=== PATIENT | male | born 1965 | race African-American/Black ===

== ENCOUNTER 2017-09-11 12:58 | Emergency (ER) | payer MEDICAID, OTHER ==
[~2017-09-11] VITALS: Ht 175.3 cm; Wt 72.6 kg
[~2017-09-11 12:58] MED LIST: DOXYCYCLINE MO100 MG ORAL
[2017-09-11 13:20] VITALS: BP 127/88
[2017-09-11] MEDS ORDERED: oxyCODONE HCL/Acetaminophen 5/325mg ORAL ONE (13:30)
--- NOTE | 2017-09-11 13:37 | Emergency Room Report ---
History of Present Illness General Chief Complaint: Medication Refill Source: Patient Present Illness HPI 51-year-old male presents to the emergency department complaining of exacerbation of his chronic back and hand pain 4 days. Patient has a history of chronic pain and neuropathy he also has a history of HIV. Patient states that he is currently in between pain management provider's as he had a change in his insurance. Patient states that his primary care provider told him to go to the ER for refill. Patient reports that he takes oxycodone 30 mg as well as 1 mg Xanax regularly. He denies trauma or fall, fevers, chills, nausea vomiting. He denies changes in his symptoms from previous episodes. Denies gross numbness/tingling or loss of sensation. Denies loss of gross motor movements of the extremities, incontinence of bowel or bladder. Denies CP, Palpitations, LOC, AMS, dizziness, Changes in Vision, Sensation, paresthesias, or a sudden severe headache. Allergies: Coded Allergies: No Known Allergies (Unverified , 06/02/14) Patient History Past Medical History: see triage record Past Surgical History: none Pertinent Family History: none Reviewed Nursing Documentation: PMH: Agreed; PSxH: Agreed Nursing Documentation-PMH Past Medical History: No History, Except For Hx Cardiac Problems: No - hematuria History Of Psychiatric Problem: Yes - anxiety Review of Systems All Other Systems: negative except mentioned in HPI Physical Exam Vital Signs Date Time Temp Pulse Resp B/P (MAP) Pulse Ox O2 Delivery O2 Flow Rate FiO2 09/11/17 13:10 97.7 93 19 127/88 96 Room Air 97.7 Sp02 EP Interpretation: reviewed, normal General Appearance: no apparent distress, alert, GCS 15, non-toxic Head: normocephalic, atraumatic Eyes: bilateral eye normal inspection, bilateral eye PERRL ENT: hearing grossly normal, normal voice Neck: full range of motion Respiratory: chest non-tender, lungs clear, normal breath sounds, speaking full sentences Cardiovascular #1: regular rate, rhythm, normal capillary refill Musculoskeletal: back normal, gait/station normal, normal range of motion, non- tender, other - Pt. has pain with making fists, but has FROM Neurologic: alert, oriented x3, responsive, motor strength/tone normal, sensory intact, normal gait, speech normal, grossly normal Psychiatric: judgement/insight normal Skin: normal color, no rash, warm/dry, well hydrated Medical Decision Making PA Attestation Dr. Gonzalez is my supervising Physician whom patient management has been discussed with. Diagnostic Impression: Primary Impression: Encounter for medication refill ER Course 51-year-old male presents to the emergency department complaining of exacerbation of his chronic back and hand pain 4 days. Patient has a history of chronic pain and neuropathy he also has a history of HIV. Patient states that he is currently in between pain management provider's as he had a change in his insurance. Patient states that his primary care provider told him to go to the ER for refill. Patient reports that he takes oxycodone 30 mg as well as 1 mg Xanax regularly. He denies trauma or fall, fevers, chills, nausea vomiting. He denies changes in his symptoms from previous episodes. Denies gross numbness/tingling or loss of sensation. Denies loss of gross motor movements of the extremities, incontinence of bowel or bladder. Denies CP, Palpitations, LOC, AMS, dizziness, Changes in Vision, Sensation, paresthesias, or a sudden severe headache. Ddx considered but are not limited to: drug seeking, OD, Vital signs: are WNL, pt. is afebrile H&PE are most consistent with request for non-emergent medication refill ORDERS: none required at this time, the diagnosis is clinical ED INTERVENTIONS: --Ordered Pain medication , however pt. declined and stated he will try and contact his new pain management dr's office. -D/w pt. that I am more than happy to treat his pain here, however our policy is that chronic pain medications need to be managed by one prescribing provider , and encouraged pt. to contact his PCP, or new pain management dr's office. -I do not identify an emergent condition at this time. With current presentation , pt. is stable for close outpatient follow up and conservative treatment. D/ w pt. to return promptly to ED with worsening or new symptoms.- Pt. verbalizes his understanding and agreement with proposed treatment plan.proposed treatment plan. DISCHARGE: At this time pt. is stable for d/c to home. Will provide printed patient care instructions, and any necessary prescriptions. Care plan and follow up instructions have been discussed with the patient prior to discharge. Last Vital Signs Date Time Temp Pulse Resp B/P (MAP) Pulse Ox O2 Delivery O2 Flow Rate FiO2 09/11/17 13:10 97.7 93 19 127/88 96 Room Air 97.7 Disposition: HOME, SELF-CARE Condition: Stable Patient Instructions: Medicine Refill at the Emergency Department Additional Instructions: Take medications as directed. Follow up with a Primary Care Provider in 3-5 days, for medication management of chronic pain prescriptions. Emergency department only provides controlled substance prescriptions for acute injuries. --Please review list of primary care clinics, if you do not already have a primary care provider Return sooner to ED if new symptoms occur, or current symptoms become worse. - Please note that this Emergency Department Report was dictated using [employer] liaison technology software, occasionally this can lead to erroneous entry secondary to interpretation by the dictation equipment. Quin Riley September 11, 2017 13:37
[2017-09-11 13:47] VITALS: BP 127/88
== END 2017-09-11 14:13 | disposition home or self-care (01) ==
LOC: EMR 13:53
DX: G89.29 Other chronic pain (principal); G62.9 Polyneuropathy, unspecified; F41.9 Anxiety disorder, unspecified; Z76.0 Encounter for issue of repeat prescription
CPT/HCPCS: 99283

== ENCOUNTER 2018-09-17 03:33 | Emergency (ER) | payer OTHER ==
[~2018-09-17] VITALS: Ht 180.3 cm; Wt 72.6 kg
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
[2018-09-17] MEDS ORDERED: Morphine Sulfate 10mg/ml Inj IM ONE (03:45)
[2018-09-17 03:56] VITALS: BP 136/97
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
--- NOTE | 2018-09-17 04:01 | NUR ---
ED Nurse Note: patient was taken down for CT
--- NOTE | 2018-09-17 04:15 | NUR ---
ED Nurse Note: patient is back from CT
[2018-09-17 04:58] LABS: APPEARANCE,URINE CLEAR; BILIRUBIN, URINE NEGATIVE (NEGATIVE); COLOR,URINE BROWN; GLUCOSE, URINE (UA) NEGATIVE (NEGATIVE); KETONES,URINE 1+ (NEGATIVE); LEUKOCYTE ESTERASE ,URINE 1+ (NEGATIVE); NITRITE,URINE NEGATIVE (NEGATIVE); PH,URINE 5 (4.5-8.0); PROTEIN,URINE 2+ (NEGATIVE); UROBILINOGEN,URINE 1 MG/DL (0.0-1.0)
[2018-09-17 05:00] LABS: BASOPHILS % (AUTO) 0.6 % (0.0-2.0); EOSINOPHILS % (AUTO) 0.8 % (0.0-3.0); HEMATOCRIT 34.2 % (42.0-52.0); HEMOGLOBIN 11.7 G/DL (14.2-18.0); LYMPHOCYTES % (AUTO) 24.9 % (20.0-45.0); MEAN CORPUSCULAR VOLUME 93 FL (80-99); NEUTROPHILS % (AUTO) 65.7 % (45.0-75.0); PLATELET COUNT 210 K/UL (150-450); RED BLOOD COUNT 3.68 M/UL (4.70-6.10); RED CELL DISTRIBUTION WIDTH 12.5 % (11.6-14.8); WHITE BLOOD COUNT 6.9 K/UL (4.8-10.8)
[2018-09-17 05:07] VITALS: BP 135/87
[2018-09-17 05:24] LABS: ANION GAP 6 mmol/L (5-15); BLOOD UREA NITROGEN 12 mg/dL (7-18); CALCIUM 9.1 MG/DL (8.5-10.1); CARBON DIOXIDE 29 MMOL/L (21-32); CHLORIDE 102 MMOL/L (98-107); CREATININE 1.1 MG/DL (0.55-1.30); SODIUM 137 MMOL/L (136-145)
[2018-09-17 05:28] LABS: ALANINE AMINOTRANSFERASE 22 U/L (12-78); ALBUMIN 3.4 G/DL (3.4-5.0); ALBUMIN/GLOBULIN RATIO 0.9 (1.0-2.7); ALKALINE PHOSPHATASE 65 U/L (46-116); ASPARTATE AMINO TRANSFERASE 21 U/L (15-37); BILIRUBIN,TOTAL 0.5 MG/DL (0.2-1.0)
[2018-09-17 06:06] VITALS: BP 125/81
--- NOTE | 2018-09-17 06:34 | NUR ---
ED Nurse Note: Report given to Krystyna Eisenberg at [facility], waiting for transportation.
[2018-09-17 06:42] VITALS: BP 120/82
--- NOTE | 2018-09-17 06:44 | NUR ---
ED Nurse Note: Patient was transfered to [facility] due to hemoperitoneum, suspicious spleen rupture. AAOx4, VSS at this time, skin is intact, warm to touch, patient was woken up, cooperativ, no acute disstress noticed. Patient was transfered by [facility] [id number]. All belongings were transfered with the patient.
--- NOTE | 2018-09-17 09:54 | Diagnostic Imaging Report ---
Indication: Abdominal pain Technique: Continuous helical transaxial imaging of the abdomen and pelvis was obtained from the lung bases to the pubic symphysis. No intravenous contrast was administered. Coronal 2-D reformats were also obtained. Automatic Exposure Control was utilized. Total Dose length Product (DLP): 545.[address] Dose Index Volume (CTDIvol): 10.35 mGy Comparison: none Findings: Linear and groundglass opacities are at the lung bases consistent with atelectasis. In the left lower lobe there may be pneumonia present. Clinical correlation is needed. There is a small hiatal hernia. There is peritoneal free fluid demonstrated most notably within the pelvis posterior to the urinary bladder. The fluid is dense similar to that of muscle and considerably more dense than the gallbladder or fluid at the stomach and bowel. Findings are consistent with hemoperitoneum. The nature of this is unknown. The spleen is heterogeneous and therefore consider splenic rupture as the source of the blood. Evaluation of solid organs is limited on this study done without IV contrast. There is no hydronephrosis. The appendix is not seen. There is a probable small left inguinal hernia containing fat. Narrowing of the L4-5 and L5-S1 discs noted. Hypertrophied facets demonstrated within the mid and lower lumbar spine. IMPRESSION: Hemoperitoneum. Query splenic rupture. Please correlate clinically. Posterior basilar atelectasis versus pneumonia. Degenerative disease involving the lower lumbar spine. Small hiatal hernia [facility] has communicated the preliminary results to the Emergency Department. Their findings are largely concordant with this report. The CT scanner at [facility] is accredited by the [employer] and the scans are performed using dose optimization techniques as appropriate to a performed exam including Automatic Exposure control.
--- NOTE | 2018-09-17 12:55 | Diagnostic Imaging Report ---
Indication: Dyspnea Comparison: 07/18/2005 A single view chest radiograph was obtained. Findings: There is scarring or atelectasis at the left lung base with platelike density. Heart size is prominent but lung volumes are low. IMPRESSION: Mild left basal atelectasis versus scarring
== END 2018-09-17 06:55 | disposition short-term general hospital (02) ==
LOC: EMR 03:57
DX: S36.09XA Other injury of spleen, initial encounter (principal); K66.1 Hemoperitoneum; B20 Human immunodeficiency virus [HIV] disease; R10.9 Unspecified abdominal pain; V47.5XXA Car driver injured in collision with fixed or stationary object in traffic accident, initial encounter; Y92.410 Unspecified street and highway as the place of occurrence of the external cause; R11.2 Nausea with vomiting, unspecified; K44.9 Diaphragmatic hernia without obstruction or gangrene; M47.9 Spondylosis, unspecified
CPT/HCPCS: 36415; 71045; 74176; 80053; 81001; 83690; 85025; 85610; 85730; 86900; 86901; 96360; 96372; 99291; J2270

== ENCOUNTER 2019-08-06 09:32 | Outpatient (CLI) | payer MEDICAID ==
[~2019-08-06] VITALS: Ht 175.3 cm; Wt 73.9 kg
[2019-08-06 13:41] VITALS: BP 100/65
[2019-08-06] MEDS ORDERED: IBUPROFEN600 M1 ORAL (13:41)
[2019-08-06] MEDS ORDERED: HIV MEDICATION (13:41)
[2019-08-06] MEDS ORDERED: XANAX0.5 MG ORAL (13:41)
[2019-08-06] MEDS ORDERED: QUETIAPINE FUM100 MG ORAL (13:41)
[2019-08-06] MEDS ORDERED: OXYCODONE HCL10 MG ORAL (13:41)
--- NOTE | 2019-08-06 16:30 | Consultation ---
DATE OF CONSULTATION: 08/06/2019 CONSULTING PHYSICIAN: Harris Munoz M.D. CHIEF COMPLAINT: Constipation, bloating, abdominal pain. HISTORY OF PRESENT ILLNESS: This is a 53-year-old male with past medical history of HIV and anxiety who was apparently in December admitted to the hospital with some diagnosis of possible colitis, had a colonoscopy done. I do not have the report, but there is a written note says that patient had no polyps and no colitis. Patient is here because he is having rectal bleeding, abdominal pain, constipation, straining. PAST MEDICAL HISTORY: 1. HIV. 2. Anxiety. 3. Chronic back pain. PAST SURGICAL HISTORY: Vocal cord tumor. MEDICATIONS: He is on Xanax, HIV medication, Seroquel, ibuprofen. FAMILY HISTORY: No family history of GI malignancies. SOCIAL HISTORY: The patient occasionally drinks alcohol. Smokes 1 pack of his cigarettes and also uses marijuana. ALLERGIES: No known drug allergies. REVIEW OF SYSTEMS: Positive for abdominal pain, constipation, rectal bleeding, bloating. PHYSICAL EXAMINATION: VITAL SIGNS: Temperature 98.4, blood pressure 100/65, pulse 76, respirations 20. HEENT: Normocephalic and atraumatic. Sclerae anicteric. NECK: Supple. No evidence of obvious lymphadenopathy. CARDIOVASCULAR: Regular rate and rhythm. Plus S1-S2. LUNGS: Clear to auscultation bilaterally. ABDOMEN: Positive bowel sounds. Soft, nontender. No rebound. No guarding. No peritoneal sign. EXTREMITIES: No cyanosis. No clubbing. No edema. ASSESSMENT AND PLAN: This is a 53-year-old male with recent colonoscopy back in December of 2018 with just handwritten report saying no acute finding, complained of mostly abdominal pain, constipation, straining, and maybe bleeding from the hemorrhoids. Plan to treat the hemorrhoids with Anusol-HC cream twice a day. Sitz baths. Patient was also given a prescription for Amitiza twice a day for constipation. Patient was told to come back if his symptoms does not improve for possible repeat colonoscopy. Also, patient was told to bring the report of his last colonoscopy. Harris Munoz M.D. DR: MARA JOB#: [id number] CC:
== END 2019-08-06 11:32 | disposition home or self-care (01) ==
LOC: PAN 09:32
DX: R10.9 Unspecified abdominal pain (principal); K59.00 Constipation, unspecified; R14.0 Abdominal distension (gaseous); K64.9 Unspecified hemorrhoids; B20 Human immunodeficiency virus [HIV] disease; F41.9 Anxiety disorder, unspecified; Z79.899 Other long term (current) drug therapy; F17.210 Nicotine dependence, cigarettes, uncomplicated; F12.90 Cannabis use, unspecified, uncomplicated; K62.5 Hemorrhage of anus and rectum
CPT/HCPCS: G0463

== ENCOUNTER 2019-11-03 13:54 | Emergency (ER) | payer MEDICAID, OTHER ==
[~2019-11-03] VITALS: Ht 175.3 cm; Wt 72.6 kg
[~2019-11-03 13:54] MED LIST changes: +HIV MEDICATION; +IBUPROFEN600 M1 ORAL; +OXYCODONE HCL10 MG ORAL; +QUETIAPINE FUM100 MG ORAL; +XANAX0.5 MG ORAL
[2019-11-03 14:10] VITALS: BP 122/74
--- NOTE | 2019-11-03 14:15 | NUR ---
Nurse Note: Pt walked in c/o mass behind RT ear. Per pt, pt went to [facility] on October 16 for a procedure. Pt stated he missed his follow up appointment. Mass red, large, no puss and drainage noted. Denies pain.
--- NOTE | 2019-11-03 14:22 | Emergency Room Report ---
History of Present Illness General Chief Complaint: Skin Rash/Abscess Source: Patient Present Illness HPI The patient had a benign tumor removed on October 15 by a surgeon. He thinks he got it wet. Is been swelling since that time. He denies any pain or fevers or chills. He has been putting boil ease on it. Apparently the tumor was benign which was removed. No sore throat, chest pain, nausea, vomiting, diarrhea, dysuria, abdominal pain , shortness of breath, joint pain, depression, anxiety, visual changes, dizziness, headache. 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 COVID-19 Screening: Negative COVID-19 COVID-19 Testing Source: [facility] 2 weeks ago Patient History Past Medical History: see triage record Social History: Reports: smoking, alcohol use, drug use Social History Narrative From home Reviewed Nursing Documentation: PMH: Agreed; PSxH: Agreed Nursing Documentation-PMH Past Medical History: No History, Except For Hx Hypertension: Yes Hx Cancer: No Hx Gastrointestinal Problems: Yes - colitis Hx Neurological Problems: No Review of Systems All Other Systems: negative except mentioned in HPI Physical Exam Vital Signs Date Time Temp Pulse Resp B/P (MAP) Pulse Ox O2 Delivery O2 Flow Rate FiO2 11/03/19 14:00 98.2 90 19 122/74 (90) 97 Room Air Sp02 EP Interpretation: reviewed, normal General Appearance: well appearing, no apparent distress, GCS 15 Head: normocephalic Eyes: bilateral eye normal inspection, bilateral eye PERRL, bilateral eye EOMI ENT: moist mucus membranes Neck: full range of motion, supple, no bony tend, other - Mass at the angle of the jaw on the right hand side, full range of motion of jaw Respiratory: normal inspection Cardiovascular #1: normal inspection, regular rate, rhythm Cardiovascular #2: 2+ radial (R) Gastrointestinal: normal inspection Musculoskeletal: gait/station normal Neurologic: alert, grossly normal Psychiatric: mood/affect normal Skin: other - Masses approximately 2 x 3cm. There is no fluctuance. There is slight erythema of the skin. Also is covered with the boil ease. Medical Decision Making Diagnostic Impression: Primary Impression: Cellulitis Qualified Codes: L03.211 - Cellulitis of face ER Course Patient presents with swelling after surgical removal of a benign tumor below his right ear. Differential includes abscess, cellulitis, hematoma amongst others. Based on how the lesion feels this is not an abscess at the moment. The erythema suggest this is a cellulitis. Antibiotics and antibiotic ointment are indicated. Patient denies pain at this time. Patient was advised to follow-up with the surgeon that performed the tumor removal. Patient stable for outpatient observation and treatment. Last Vital Signs Date Time Temp Pulse Resp B/P (MAP) Pulse Ox O2 Delivery O2 Flow Rate FiO2 11/03/19 14:35 98.2 90 19 122/74 97 Room Air Status: unchanged Disposition: HOME, SELF-CARE Condition: Stable Scripts Bacitracin (Bacitracin) 28.4 Gm Oint...g. 1 APPLIC TOPIC BID, #20 GM Prov: Sony Gonzalez MD 11/03/19 Trimethoprim/Sulfamethoxazole 160/800* (BACTRIM DS TABLET*) 1 Each Tablet 1 TAB ORAL Q12H, #14 TAB 0 Refills Prov: Sony Gonzalez MD 11/03/19 Sony Gonzalez MD Nov 03, 2019 14:22
[2019-11-03] MEDS ORDERED: BACTRIM DS TAB1 EAC1 ORAL (14:23)
[2019-11-03] MEDS ORDERED: BACITRACIN15 GM TOPIC (14:23)
[2019-11-03] MEDS ORDERED: Bacitracin Oint UD TOPIC ONE (14:30)
[2019-11-03] MEDS ORDERED: Bactrim-DS 1 tab ORAL ONE (14:30)
[2019-11-03 14:35] VITALS: BP 122/74
--- NOTE | 2019-11-03 14:40 | NUR ---
ED Nurse Note: Pt cleared by health care Provider for discharge. DC instructions/prescription was given and explained to pt and verbalized understanding of teachings. All medical deviecs such as ID band removed. Pt is AAO x4, ambulatory and left with all personal belongings.
== END 2019-11-03 14:35 | disposition home or self-care (01) ==
LOC: EMR 14:16
DX: L03.211 Cellulitis of face (principal); F17.200 Nicotine dependence, unspecified, uncomplicated; I10 Essential (primary) hypertension
CPT/HCPCS: 99282